=== PATIENT | female | born 1995 | race Caucasian/White ===

== ENCOUNTER 2024-04-19 12:37 | Emergency (ER) | payer BC ==
[2024-04-19 12:48] VITALS: TEMP 97.2
[2024-04-19] MEDS: CYCLOBENZAPRINE HCL 10 MG TAB PO ONE (13:40)
[2024-04-19] MEDS: KETOROLAC TROMETHAMINE 60 MG/2 ML VIAL IM ONE (13:43)
[2024-04-19 14:00] VITALS: PULSE 84; RESP 16; O2SAT 100
[2024-04-19] MEDS ORDERED: CYCLOBENZAPRINE10 MG PO (15:01)
== END 2024-04-19 15:11 | disposition home or self-care (01) ==
LOC: ER 12:58
DX: M54.2 Cervicalgia (principal); M54.6 Pain in thoracic spine; M54.50 Low back pain, unspecified; M25.552 Pain in left hip; M25.551 Pain in right hip; V43.52XA Car driver injured in collision with other type car in traffic accident, initial encounter; Y92.488 Other paved roadways as the place of occurrence of the external cause; F31.9 Bipolar disorder, unspecified
CPT/HCPCS: 72070; 72110; 99283; J1885